=== PATIENT | male | born 1975 | race American Indian/Alaskan Native ===

== ENCOUNTER 2020-11-23 09:39 | Emergency (ER) | payer OTHER ==
--- NOTE | 2020-11-23 10:16 | Emergency Department Report ---
ED General Adult HPI - General Chief complaint: Weakness Stated complaint: NOT FEELING WELL [facility] COVID VAC Time Seen by Provider: 11/23/20 10:00 Source: patient Mode of arrival: Ambulatory Limitations: No Limitations - History of Present Illness Initial comments: Patient presents to the emergency department the chief complaint of generalized weakness and chest pain that started yesterday. Patient describes the chest pain as a sharp-like sensation in the middle of his chest that has been continuous in nature since its onset. Patient also complains of muscle fatigue and body aches as well. Patient states that he had a maternal shot on Sunday and yesterday when he began to experience the above-mentioned symptoms he thought was secondary to that. Patient denies any shortness of breath or abdominal pain. -: Sudden Location: chest Severity scale (0 -10): 4 Quality: sharp Consistency: constant Improves with: none Worsens with: none Associated Symptoms: denies other symptoms Treatments Prior to Arrival: none - Related Data Allergies Allergy/AdvReac Type Severity Reaction Status Date / Time No Known Allergies Allergy Unverified 11/23/20 09:44 ED Review of Systems ROS: Stated complaint: NOT FEELING WELL [facility] COVID VAC Other details as noted in HPI Comment: All other systems reviewed and negative Constitutional: denies: chills, fever Eyes: denies: eye pain, eye discharge, vision change ENT: denies: ear pain, throat pain Respiratory: denies: cough, shortness of breath, wheezing Cardiovascular: chest pain. denies: palpitations Endocrine: no symptoms reported Gastrointestinal: denies: abdominal pain, nausea, diarrhea Genitourinary: denies: urgency, dysuria Musculoskeletal: denies: back pain, joint swelling, arthralgia Skin: denies: rash, lesions Neurological: denies: headache, weakness, paresthesias Psychiatric: denies: anxiety, depression Hematological/Lymphatic: denies: easy bleeding, easy bruising ED Past Medical Hx - Past Medical History Previous Medical History?: No - Surgical History Past Surgical History?: No ED Physical Exam - General Limitations: No Limitations General appearance: alert, in no apparent distress - Head Head exam: Present: atraumatic, normocephalic - Eye Eye exam: Present: normal appearance, PERRL, EOMI - ENT ENT exam: Present: mucous membranes moist - Neck Neck exam: Present: normal inspection - Respiratory Respiratory exam: Present: normal lung sounds bilaterally. Absent: respiratory distress - Cardiovascular Cardiovascular Exam: Present: regular rate, normal rhythm. Absent: systolic murmur, diastolic murmur, rubs, gallop - GI/Abdominal GI/Abdominal exam: Present: soft, normal bowel sounds. Absent: distended, tenderness - Rectal Rectal exam: Present: deferred - Extremities Exam Extremities exam: Present: normal inspection - Back Exam Back exam: Present: normal inspection - Neurological Exam Neurological exam: Present: alert, oriented X3, CN II-XII intact. Absent: motor sensory deficit - Psychiatric Psychiatric exam: Present: normal affect, normal mood - Skin Skin exam: Present: warm, dry, intact, normal color. Absent: rash ED Medical Decision Making - Lab Data Result diagrams: 11/23/20 10:11/23/20 10:19 Lab Results 11/23/20 11/23/20 11/23/20 Range/Units 10:19 10: 10:19 WBC 4.1 L (4.5-11.0) K/mm3 RBC 4.50 (3.65-5.03) M/mm3 Hgb 14.8 (11.8-15.2) gm/dl Hct 43.1 (35.5-45.6) % MCV 96 H (84-94) fl MCH 33 H (28-32) pg MCHC 34 (32-34) % RDW 13.6 (13.2-15.2) % Plt Count 137 L (140-440) K/mm3 Seg Neutrophils % Sales Management Intern D-Dimer 1692.94 H (0-234) ng/mlDDU Sodium 136 L (137-145) mmol/L Potassium 4.5 (3.6-5.0) mmol/L Chloride 97.3 L (98-107) mmol/L Carbon Dioxide 25 (22-30) mmol/L Anion Gap 18 mmol/L BUN 8 L (9-20) mg/dL Creatinine 0.7 L (0.8-1.3) mg/dL Estimated GFR > 60 ml/min BUN/Creatinine Ratio 11 % Glucose 82 (75-100) mg/dL Calcium 9.1 (8.4-10.2) mg/dL Total Bilirubin 0.40 (0.1-1.2) mg/dL AST 118 H (5-40) units/L ALT 57 H (7-56) units/L Alkaline Phosphatase 110 (35-129) units/L Troponin T < 0.010 (0.00-0.029) ng/mL Total Protein 7.8 (6.3-8.2) g/dL Albumin 4.3 (3.9-5) g/dL Albumin/Globulin Ratio 1.2 % 11/23/ Range/Units 12:22 WBC (4.5-11.0) K/mm3 RBC (3.65-5.03) M/mm3 Hgb (11.8-15.2) gm/dl Hct (35.5-45.6) % MCV (84-94) fl MCH (28-32) pg MCHC (32-34) % RDW (13.2-15.2) % Plt Count (140-440) K/mm3 Seg Neutrophils % D-Dimer (0-234) ng/mlDDU Sodium (137-145) mmol/L Potassium (3.6-5.0) mmol/L Chloride (98-107) mmol/L Carbon Dioxide (22-30) mmol/L Anion Gap mmol/L BUN (9-20) mg/dL Creatinine (0.8-1.3) mg/dL Estimated GFR ml/min BUN/Creatinine Ratio % Glucose (75-100) mg/dL Calcium (8.4-10.2) mg/dL Total Bilirubin (0.1-1.2) mg/dL AST (5-40) units/L ALT (7-56) units/L Alkaline Phosphatase (35-129) units/L Troponin T < 0.010 (0.00-0.029) ng/mL Total Protein (6.3-8.2) g/dL Albumin (3.9-5) g/dL Albumin/Globulin Ratio % - EKG Data -: EKG Interpreted by Ri EKG shows normal: sinus rhythm Rate: bradycardia - Medical Decision Making Discussed results with patient and need to follow-up with primary care physician for further evaluation of lymphadenopathy of the hilar region EKG shows a sinus bradycardia with nonspecific ST wave abnormalities. Rate 54 bpm normal axis, normal intervals Critical care attestation.: If time is entered above; I have spent that time in minutes in the direct care of this critically ill patient, excluding procedure time. ED Disposition Clinical Impression: Nonspecific chest pain, Pleurisy, Hilar lymphadenopathy Disposition: HOME / SELF CARE / HOMELESS Is pt being admited?: No Does the pt Need Aspirin: No Condition: Fair Instructions: Nonspecific Chest Pain, Adult, Pleurisy Additional Instructions: return if worse Referrals: JULIET EDWARDS MD [Staff Physician] - 3-5 Days PRIMARY CARE, [Primary Care Provider] - 3-5 Days Forms: Work/School Release Form(ED)
[2020-11-23 10:51] LABS: Hematocrit 43.1 % (35.5-45.6); Hemoglobin 14.8 gm/dl (11.8-15.2); Mean Corpuscular HGB Conc 34 % (32-34); Mean Corpuscular Volume 96 fl (84-94); Platelet Count 137 K/mm3 (140-440); Red Cell Distribution Width 13.6 % (13.2-15.2)
[2020-11-23 11:08] LABS: Alanine Aminotransferase 57 units/L (7-56); Albumin 4.3 g/dL (3.9-5); Blood Urea Nitrogen 8 mg/dL (9-20); Calcium 9.1 mg/dL (8.4-10.2); Hemolysis Index 6
[2020-11-23 11:09] LABS: BUN/Creatinine Ratio 11
--- NOTE | 2020-11-23 11:10 | XRay Report ---
CHEST PA AND LATERAL VIEWS INDICATION: chest pain. COMPARISON: None. FINDINGS: Support devices: None. Heart: Within normal limits. Lungs/Pleura: No acute pulmonary or pleural findings. IMPRESSION: 1. No acute findings. Signer Name: Jose Daniel Adame MD Signed: 11/23/2020 11:06 AM Workstation Name: [id number]
--- NOTE | 2020-11-23 12:42 | Cat Scan Report ---
CTA CHEST WITH CONTRAST INDICATION / CLINICAL INFORMATION: Elevated d-dimer, chest pain and shortness of breath. TECHNIQUE: Axial CT images were obtained through the chest after injection of 100 cc Omnipaque 350 IV contrast. 3 plane MIP and/or 3D reconstructions were produced. All CT scans at this location are per formed using CT dose reduction for ALARA by means of automated exposure control. COMPARISON: None available. FINDINGS: PULMONARY ARTERIES: Excellent opacification without intraluminal filling defect to suggest acute PTE. THORACIC AORTA: No significant abnormality. HEART: No significant abnormality. CORONARY ARTERY CALCIFICATION: None. MEDIASTINUM / EULALIO: No significant abnormality. PLEURA: No pleural effusion. No pneumothorax. LUNGS: There is substantial paraseptal emphysema in the upper lung zones, significantly greater on th e right. No acute pulmonary disease. ADDITIONAL FINDINGS: Mildly prominent left axillary lymph nodes, the largest of which measures 11 mm short axis. UPPER ABDOMEN: No acute findings. SKELETAL STRUCTURES: No significant osseous abnormality. IMPRESSION: 1. No CT evidence for pulmonary embolism. 2. Substantial paraseptal emphysema in the upper lung zones, significantly greater on the right than the left. No pneumothorax. 2. Mildly prominent left axillary lymph nodes are probably reactive. Signer Name: Walter Meek MD Signed: 11/23/2020 12:37 PM Workstation Name: [id number]
[2020-11-23 15:00] VITALS: BP 150/87
[2020-11-23 17:01] LABS: Band Neutrophils # (Manual) 0.1 K/mm3; Platelet Estimate Consistent w Auto; RBC Morphology Normal; Total Cells Counted 100
--- NOTE | 2020-12-01 10:19 | Electrocardiograph Report ---
[facility] Test Date: 2020-11-23 Test Time: 14:42:05 Pat Name: RANCHO CANAS Department: Room: Gender: M Predictive Maintenance Specialist: DILLON : 1975 Requested By: AVELINA GERMAN Order Number: [id number] Reading MD: Susan Welch Measurements Intervals [place] Rate: 54 P: 36 WI: 125 QRS: 46 QRSD: 89 T: 54 QT: 459 QTc: 436 Interpretive Statements Sinus bradycardia Probable anterior infarct, age indeterminate Low voltage QRS No previous ECG available for comparison Electronically Signed On 12-01-2020 10:19:02 EDT by Susan Welch
== END 2020-11-23 14:59 | disposition home or self-care (01) ==
LOC: ED 09:39
DX: R07.9 Chest pain, unspecified (principal); R09.1 Pleurisy; R59.1 Generalized enlarged lymph nodes
CPT/HCPCS: 36415; 71046; 71275; 80053; 84484; 85007; 85025; 85379; 93005; 99284; Q9967